=== PATIENT | female | born 1965 | race African-American/Black ===

== ENCOUNTER 2017-05-19 11:26 | Emergency (ER) | payer OTHER ==
[~2017-05-19] VITALS: Ht 157.5 cm; Wt 68.0 kg
[~2017-05-19 11:26] MED LIST: HYDROCHLOROTHIA25 M2 PO; IBUPROFEN 600600 M1 PO; KLOR-CON 1010 MEQ PO; LIPITOR10 MG PO; ONE-A-DAY WOMENS PO; POTASSIUM20 PO; PROBIOTIC1 EAC1 PO
[2017-05-19 12:52] LABS: URINE BILIRUBIN NEGATIVE (Negative); URINE BLOOD NEGATIVE (Negative); URINE COLOR YELLOW; URINE GLUCOSE-RANDOM* NEGATIVE (Negative); URINE KETONES NEGATIVE (Negative); URINE LEUKOCYTES-REFLEX 1+ (Negative); URINE PROTEIN (DIPSTICK) NEGATIVE (Negative); URINE UROBILINOGEN 0.2 E.U./dl (0.2-1.0)
[2017-05-19 13:00] LABS: CASTS None Seen /LPF (None Seen); CRYSTALS None Seen /LPF (None Seen); SQUAMOUS 4-10 Moderate /LPF (0-3); URINE RBC None Seen /HPF (0-2); URINE WBC-REFLEX 6-15 Few /HPF (0-5)
[2017-05-19] MEDS ORDERED: KEFLEX500 MG PO (13:52)
[2017-05-19] MEDS ORDERED: LIORESAL 10 MG10 MG PO (13:52)
[2017-05-19 14:00] VITALS: BP 119/74
== END 2017-05-19 14:02 | disposition home or self-care (01) ==
LOC: ER 11:26
PROVIDERS: Physician Assistant
DX: N39.0 Urinary tract infection, site not specified (principal); I10 Essential (primary) hypertension; E78.00 Pure hypercholesterolemia, unspecified; E11.9 Type 2 diabetes mellitus without complications; Z98.890 Other specified postprocedural states